=== PATIENT | male | born 1945 | race Caucasian/White ===

== ENCOUNTER → 2016-06-03 | Outpatient (CLI) | payer MEDICARE, SELFPAY ==
[~2016-06-03] MED LIST: ALDACTONE 25MG25 MG PO; ASPIR-LOW81 MG PO; CATAPRES 0.1MG0.1 MG PO; COLACE 100MG C100 MG PO; COUMADIN 5MG TAB5 MG PO; DIABETA 2.5 MG2.5 MG PO; DILTIAZEM 24HR360 MG PO; FENOFIBRIC ACI135 MG PO; FLOMAX 0.4 MG0.4 MG PO; GLIPIZIDE XL5 MG PO; HYDROCHLOROTHIA25 MG PO; IPRAT-ALBUT 0.5-3 ML INH; LIPITOR TAB 2020 MG PO; LOPRESSOR50 MG PO; MULTAQ400 MG PO; NITROSTAT0.4 MG SL; OMNICEF 300 MG300 MG PO; PLAVIX 75 MG TA75 MG PO; PROAIR HFA8.5 GM INH; SPIRIVA HANDIH18 MCG INH; SYMBICORT 160-1 INHA INH; THEOCHRON300 MG PO
== END ==
LOC: HEART 5 07:13
DX: I48.91 Unspecified atrial fibrillation (principal); R06.02 Shortness of breath
CPT/HCPCS: 78452; 93017; A9502; J2785

== ENCOUNTER 2016-07-20 11:42 | Inpatient (IN) | payer MEDICARE, OTHER ==
[~2016-07-20] VITALS: Ht 172.7 cm; Wt 105.2 kg
[~2016-07-20 11:42] MED LIST changes: -ALDACTONE 25MG25 MG PO; -GLIPIZIDE XL5 MG PO; -IPRAT-ALBUT 0.5-3 ML INH; -OMNICEF 300 MG300 MG PO; -PLAVIX 75 MG TA75 MG PO; -SPIRIVA HANDIH18 MCG INH; -SYMBICORT 160-1 INHA INH
[2016-07-20 13:51] LABS: THEOPHYLLINE 7.9 ug/mL (10.0-20.0)
[2016-07-20 14:02] LABS: HEMOGLOBIN 13.5 gm/dl (14.0-17.5); RED BLOOD COUNT 4.77 M/UL (4.20-5.50); WHITE BLOOD COUNT 7.6 K/UL (4.5-11.0)
[2016-07-20] MEDS ORDERED: GLIPIZIDE XL5 MG PO (23:08)
[2016-07-23 05:16] LABS: HEMOGLOBIN 12.4 gm/dl (14.0-17.5); RED BLOOD COUNT 4.45 M/UL (4.20-5.50); WHITE BLOOD COUNT 8.5 K/UL (4.5-11.0)
[2016-07-23] MEDS ORDERED: SPIRIVA HANDIH18 MCG INH (14:41)
[2016-07-23] MEDS ORDERED: PLAVIX 75 MG TA75 MG PO (15:09)
[2016-07-23] MEDS ORDERED: OMNICEF 300 MG300 MG PO (15:10)
[2016-11-18] MEDS ORDERED: ALDACTONE 25MG25 MG PO (19:35)
[2016-11-18] MEDS ORDERED: PROAIR HFA8.5 GM INH (19:35)
[2016-11-26] MEDS ORDERED: SYMBICORT 160-1 INHA INH (12:09)
[2016-11-26] MEDS ORDERED: IPRAT-ALBUT 0.5-3 ML INH (12:11)
== END 2016-07-23 15:42 | disposition home or self-care (01) | DRG 190 ==
LOC: ER1 11:42 → ZEROF 16:08 → CCU 23:01 → PROG CARE 07-21 21:55
PROVIDERS: Specialist/Technologist Athletic Trainer; ADMIT Hospitalist
DX: J44.1 Chronic obstructive pulmonary disease with (acute) exacerbation (principal); I21.4 Non-ST elevation (NSTEMI) myocardial infarction; N17.9 Acute kidney failure, unspecified; J44.0 Chronic obstructive pulmonary disease with (acute) lower respiratory infection; J20.9 Acute bronchitis, unspecified; I12.9 Hypertensive chronic kidney disease with stage 1 through stage 4 chronic kidney disease, or unspecified chronic kidney disease; E11.22 Type 2 diabetes mellitus with diabetic chronic kidney disease; N18.9 Chronic kidney disease, unspecified; I48.0 Paroxysmal atrial fibrillation; I25.10 Atherosclerotic heart disease of native coronary artery without angina pectoris; E78.5 Hyperlipidemia, unspecified; E66.9 Obesity, unspecified; F17.210 Nicotine dependence, cigarettes, uncomplicated; Z72.3 Lack of physical exercise; Z82.49 Family history of ischemic heart disease and other diseases of the circulatory system; Z79.82 Long term (current) use of aspirin; Z79.899 Other long term (current) drug therapy; Z95.1 Presence of aortocoronary bypass graft
CPT/HCPCS: 36415; 71010; 80048; 80053; 80198; 81001; 82550; 82553; 82570; 82803; 82962; 83605; 83874; 83880; 84156; 84484; 85025; 85027; 87040; 87070; 87077; 87186; 87205; 93005; 94640; 94664; 96365; 99285; J0696; J1650; J1956; J2920; J2930; J7050

== ENCOUNTER → 2016-12-16 | Outpatient (CLI) | payer MEDICARE ==
[~2016-12-16] MED LIST changes: +ALDACTONE 25MG25 MG PO; +GLIPIZIDE XL5 MG PO; +IPRAT-ALBUT 0.5-3 ML INH; +OMNICEF 300 MG300 MG PO; +PLAVIX 75 MG TA75 MG PO; +SPIRIVA HANDIH18 MCG INH; +SYMBICORT 160-1 INHA INH
== END ==
LOC: RT 11:25
DX: R09.02 Hypoxemia (principal)
CPT/HCPCS: 36600; 82803; 94060; 94729

== ENCOUNTER → 2016-12-16 | Outpatient (CLI) | payer MEDICARE | LOC: HEART 5 10:15 | DX: J44.9 Chronic obstructive pulmonary disease, unspecified (principal) | CPT/HCPCS: 94060; 94729 ==